=== PATIENT | male | born 1960 | race African-American/Black ===

== ENCOUNTER 2022-10-28 11:29 | Emergency (ER) | payer BC ==
[~2022-10-28 11:29] MED LIST: Iopamidol 370 76% 100 ML VIAL ONE
[2022-10-28] MEDS ORDERED: Ondansetron PF 4 MG/2 ML Vial ONE (12:07)
[2022-10-28] MEDS ORDERED: Sodium Chloride 0.9% 1,000 ML ONE (12:07)
[2022-10-28] MEDS ORDERED: Morphine 4 MG/ML VIAL ONE ×2 (12:07→13:20)
[2022-10-28] MEDS ORDERED: Famotidine/PF 20 mg/2ml Vial ONE (12:07)
[2022-10-28 12:25] LABS: ALT (SGPT) 26 U/L (8-55); Albumin 4.9 g/dL (3.5-5.0); Alkaline Phosphatase 118 U/L (40-110); Anion Gap 18 mmol/L (10-20); BUN (Urea Nitrogen) 10 mg/dL (8.4-25.7); Bilirubin, Total 0.4 mg/dL (0.2-1.2); Calc. Creatinine Clearance 0 mL/min (70-130); Calcium 10.4 mg/dL (7.8-10.44); Carbon Dioxide 24 mmol/L (22-29); Chloride 102 mmol/L (98-107); Estimated GFR 95; Glucose 166 mg/dL (70-105); Lipase 34 U/L (8-78); Potassium 4.4 mmol/L (3.5-5.1); Protein, Total 7.9 g/dL (6.0-8.3); Sodium 140 mmol/L (136-145)
[2022-10-28 12:28] LABS: #Basophils 0.1 thou/uL (0.0-0.2); #Eosinphils 0.1 thou/uL (0.0-0.7); #Lymphocytes 0.7 thou/uL (1.20-3.40); #Monocytes 0.2 thou/uL (0.11-0.59); #Neutrophils 5.3 thou/uL (1.40-6.50); %Basophils 1.4 % (0.0-1.0); %Lymphocytes 11.6 % (21.0-51.0); %Monocytes 3.7 % (0.0-10.0); %Neutrophils 82.3 % (42.0-75.0); Hemoglobin 14.5 g/dL (14.0-18.0); Mean Corpuscular HGB CONC 32.5 g/dL (32.0-36.0); Mean Corpuscular Hemoglobin 31.8 pg (27.0-31.0); Mean Platelet Volume 6.9 fL (7.4-10.4); Platelet Count 119 10x3/uL (130-400); RBC Distribution Width 11.4 % (11.5-14.5); Red Blood Cell (RBC) Count 4.55 mill/uL (4.70-6.10); White Blood Cell (WBC) Count 6.4 10x3/uL (4.8-10.8)
[2022-10-28 12:31] LABS: Platelet Morphology Comment Appears Decreased
[2022-10-28 12:40] LABS: AST (SGOT) 26 U/L (5-34)
[2022-10-28 13:11] LABS: Bilirubin Negative (Negative); Blood, Urine Negative (Negative); Clarity Clear (Clear); Glucose, Urine (Dipstick) Negative (Negative); Ketone, Urine Negative (Negative); Leukocyte Negative (Negative); Nitrite Negative (Negative); Protein, Urine (Dipstick) Negative (Neg-Trace); Specific Gravity, Urine 1.015 (1.005-1.030); Urobilinogen 0.2 mg/dL (Less than 2); pH, Urine 7.5 (5.0-9.0)
[2022-10-28] MEDS ORDERED: Dextrose 5 %-0.45 % NaCl 1,000 ML ONE (13:20)
== END 2022-10-28 14:55 | disposition short-term general hospital (02) ==
LOC: NAV ERS 11:29
DX: R10.9 Unspecified abdominal pain (principal); R11.10 Vomiting, unspecified; I10 Essential (primary) hypertension; F17.210 Nicotine dependence, cigarettes, uncomplicated
CPT/HCPCS: 36415; 74177; 80053; 81003; 83690; 84484; 85025; 93005; 96361; 96374; 96375; 96376; J2270; J2405; J7042; J7050; Q9967; S0028

== ENCOUNTER 2025-06-05 09:19 | Emergency (ER) | payer BC ==
[2025-06-05] MEDS ORDERED: Aspirin Chewable 81 MG TAB ONE (09:36)
[2025-06-05 09:44] LABS: Hematocrit 44.6 % (42.0-52.0); Hemoglobin 15.3 g/dL (14.0-18.0); Mean Corpuscular Hemoglobin 33.1 pg (27.0-31.0); Mean Corpuscular Volume 96.3 fl (78.0-98.0); Red Blood Cell (RBC) Count 4.63 mill/uL (4.70-6.10); White Blood Cell (WBC) Count 8.1 10x3/uL (4.8-10.8)
[2025-06-05 09:45] LABS: #Basophils 0.1 thou/uL (0.0-0.2); #Eosinophils 0.5 thou/uL (0.0-0.7); #Lymphocytes 3.3 thou/uL (1.20-3.40); #Monocytes 0.7 thou/uL (0.11-0.59); #Neutrophils 3.6 thou/uL (1.40-6.50); %Basophils 2.3 % (0.0-1.0); %Eosinophils 5.6 % (0.0-10.0); %Lymphocytes 40.1 % (21.0-51.0); %Monocytes 8.3 % (0.0-10.0); %Neutrophils 43.8 % (42.0-75.0); Manual Diff?? NO; Platelet Count 229 10x3/uL (130-400)
[2025-06-05 09:49] LABS: ALT (SGPT) 17 U/L (Less than 45); AST (SGOT) 22 U/L (11-34); Albumin 4.8 g/dL (3.1-4.5); Alkaline Phosphatase 111 U/L (40-110); Anion Gap 17 mmol/L (10-20); BUN (Urea Nitrogen) 16 mg/dL (8.4-25.7); Bilirubin, Total 0.9 mg/dL (0.3-1.2); Calc. Creatinine Clearance 0 mL/min (70-130); Calcium 10.5 mg/dL (7.8-10.44); Carbon Dioxide 23 mmol/L (23-31); Chloride 102 mmol/L (98-107); Globulin 3.0 g/dL (2.4-3.5); Glucose 150 mg/dL (80-115); Potassium 4.2 mmol/L (3.5-5.1); Sodium 138 mmol/L (136-145)
[2025-06-05 09:52] LABS: Troponin I Less than 0.010 ng/mL (< 0.028)
[2025-06-05] MEDS ORDERED: Ondansetron PF 4 MG/2 ML Vial ONE (10:11)
[2025-06-05 11:42] LABS: Glucose, Urine (Dipstick) 500 mg/dL (Negative); Leukocyte Negative (Negative); Protein, Urine (Dipstick) Negative (Neg-Trace); Specific Gravity, Urine 1.015 (1.005-1.030)
[2025-06-05 13:06] LABS: Troponin I 0.011 ng/mL (< 0.028)
== END 2025-06-05 13:28 | disposition home or self-care (01) ==
LOC: NAV ERS 09:19
DX: H81.10 Benign paroxysmal vertigo, unspecified ear (principal); I10 Essential (primary) hypertension; I25.10 Atherosclerotic heart disease of native coronary artery without angina pectoris; I25.2 Old myocardial infarction; R29.700 NIHSS score 0; Z87.891 Personal history of nicotine dependence; Z79.899 Other long term (current) drug therapy
CPT/HCPCS: 36416; 71045; 80053; 81001; 84484; 85025; 93005; 94760; 96374; J2405; J7030